=== PATIENT | male | born 1985 | race Asian ===

== ENCOUNTER 2016-09-08 15:12 | Emergency (ER) | payer OTHER ==
[~2016-09-08] VITALS: Ht 177.8 cm; Wt 81.6 kg
[2016-09-08 15:23] VITALS: BP 132/67
[2016-09-08] MEDS ORDERED: TDAP [DIPH/PERTUSSIS/TET] 0.5 ML VIAL IM ONE ×2 (15:30→15:42)
== END 2016-09-08 15:54 | disposition home or self-care (01) ==
LOC: ER 15:20
DX: S61.214A Laceration without foreign body of right ring finger without damage to nail, initial encounter (principal); S61.212A Laceration without foreign body of right middle finger without damage to nail, initial encounter; W45.8XXA Other foreign body or object entering through skin, initial encounter; Y93.89 Activity, other specified; Y92.89 Other specified places as the place of occurrence of the external cause; Y99.8 Other external cause status
CPT/HCPCS: 12001; 90471; 90715; 99283; A6402